=== PATIENT | female | born 1985 | race African-American/Black ===

== ENCOUNTER 2025-09-04 18:29 | Emergency (ER) | payer MEDICAID, SELFPAY ==
[2025-09-04 18:27] VITALS: BP 148/103; PULSE 106; RESP 16; TEMP 36.6; O2SAT 99
--- NOTE | 2025-09-04 19:04 | PC.NURSE ---
Pt refusing to let RN obtain blood work, pt educated still refusing to let RN obtain blood work. EDP aware
[2025-09-04 19:24] LABS: BEDSIDEPREGUCG Negative (Negative)
[2025-09-04 19:26] LABS: Hematocrit 37.7 % (37.0-47.0); Hemoglobin 12.2 g/dL (12.0-15.0); Immature Granulocyte Percent A 0.2 % (0-0.5); Lymphocytes Absolute Auto 2.49 K/mm3 (0.9-3.2); Mean Corpuscular HGB Conc 32.4 g/dl (32-36); Mean Corpuscular Hemoglobin 30.0 pg (26-34); Mean Corpuscular Volume 92.9 fl (80-100); Nucleated Red Blood Cells Absolute Auto 0.000 K/mm3 (0.0-0.012); Nucleated Red Blood Cells Perc 0.0 % (0.0-0.2); Platelet Count Result 302 k/mm3 (150-375); Red Blood Count 4.06 M/mm3 (4.2-5.4); White Blood Count 5.5 K/mm3 (4.5-10.0)
--- OUTSIDE RECORDS SUMMARY | 2025-09-04 19:28 | XMS_ITS | Patient Health Record ---
Author Organization [facility] Address [address] [place] [address] Care Team Providers Care Winery Worker Name Role Phone LookerEvelyn Primary Care Provider [phone] Allergies Allergen (clinical drug ingredient) Drug/Non Drug Allergy documented on EMR Reaction Allergy Type Onset Date Status Soap Soap (uncoded) rash Allergy Activ e clindamycin Clindamycin rash Drug Allergy Act laurie Povidone-iodine rash Drug Allergy A ctive Reason For Referral No Information Medications Medication SIG (Take, Route, Frequency, Duration) Notes Start Date End Date Status Citalopram Hydrobromide 20 MG Tablet take 1 tablet by oral route every day Oral ([facility]) 05/14/2014 Active RisperDAL 2 MG Tablet take 1 tablet by o ral route 2 times every day Oral ([facility]) 05/14/2014 Active metFORMIN HCl 500 MG Tablet take 2 tablet by oral route 2 times every day with morning and evening meals Oral ([facility]) 05/14/2014 Active RisperDAL 2 MG Tablet take 1 tablet by o ral route 2 times every day Oral ([facility]) 05/14/2014 Active metFORMIN HCl 500 MG Tablet take 2 tablet by oral route 2 times every day with morning and evening meals Oral ([facility]) 05/14/2014 Active Symbicort Active Glimepiride Active Citalopram Hydrobromide 20 MG Tablet take 1 tablet by oral route every day Oral ([facility]) 05/14/2014 Active Problems Problem Type SNOMED Code ICD Code Onset Dates Problem Status W/U Status Risk Notes Problem Type II diabetes mellitus without complication (467685844) Diabetes mellitus without mention of complication, type II or unspecified type, not stated as uncontrolled (250.00) 014 Active confirmed ([facility] ) Added By: Ella Collins Problem Schizoaffective disorder (22005243) Schizoaffective disorder, unspecified (295.70) 014 Active confirmed ([facility] ) Added By: Ella Collins Problem Dental caries (14594219) Dental caries (K02.9) Active confirmed Plan Of Treatment No Information Insurance Providers Payer Name Payer Address Payer Phone Subscriber Number Group Number Insured Name Patient Relationship to Insured Coverage Start Date Coverage End Date Medicare NGS [address] [place], [place] [id number] [phone] [id number] JamesAnnaShakira Self - patient is the insured Medicaid [facility] Secondary To Medicare [address] [place] [address] [id number] Shakira Ramirez Self - patient is the insured [employer] [address] [place] [address] [id number] Shakira Ramirez Self - patient is the insured [employer] [address] [place] [address] [id number] James Shakira Self - patient is the insured Medical (General) History Medical History History ICD Code diabetes anemia bleeding problems bruise easily sinus problems psychiatric problems asthma shingles
[2025-09-04 19:32] LABS: Add Urine Microscopic? YES; Appearance Urine Clear (Clear); Glucose Urine UA 3+ mg/dL (Negative); Leukocyte Esterase Ur Negative LEU/UL (Negative); Nitrate Urine Negative (Negative); Non Pathogenic Casts 0-2; Specific Grav Ur 1.037 (1.001-1.035)
[2025-09-04 19:37] LABS: Acetaminophen < 10 ug/mL (10-30); Salicylate < 1.0 mg/dL (2-20)
[2025-09-04 19:40] LABS: Alanine Aminotransferase 30 U/L (6-35); Albumin Level 3.6 g/dL (3.5-5.1); Alkaline Phosphatase 116 U/L (38-126); Anion Gap 7 mmol/L (4-12); Aspartate Amino Transferase 27 U/L (14-36); Bilirubin,Total 0.3 mg/dL (0.2-1.3); Blood Urea Nitrogen 14 mg/dL (7-17); Calcium 8.8 mg/dL (8.4-10.2); Carbon Dioxide 26 mmol/L (22-30); Chloride 97 mmol/L (98-107); Estimated CRCL calculation 119 ml/min; Estimated Glomerular Filt Rate > 60; Glucose 542 mg/dL (65-110); Potassium 4.1 mmol/L (3.4-5.0); Sodium 130 mmol/L (137-145); Total Protein 7.4 g/dL (6.3-8.2)
--- NOTE | 2025-09-04 19:40 | ED.PSYCH ---
HPI - Psych General Chief Complaint: Psychiatric Symptoms <FIDELINA Anthony Last Filed: 09/05/25 02:57> Stated Complaint: SI, HIGH BG <FIDELINA Anthony Last Filed: 09/05/25 02:57> Time Seen by Provider: 09/05/25 04:29 <FIDELINA Anthony Last Filed: 09/05/25 02:57> Source: patient <FIDELINA Anthony Last Filed: 09/05/25 02:57> Mode of arrival: EMS <FIDELINA Anthony Last Filed: 09/05/25 02:57> Limitations: no limitations <FIDELINA Anthony Last Filed: 09/05/25 02:57> History of Present Illness HPI Narrative: Patient is a 39 y/o female, with PMH of DM, schizophrenia, who presents to the ED via EMS with report SI/HI. Patient was recently discharged from [facility] after undergoing drug rehab, sent to [facility] today. Reports she got into an altercation with staff there are and was kicked out.She reportedly refused to leave the facility at which point PD became involved. Patient expressed homicidal ideation towards the female [employer] police and stated that she wanted to shoot her in the head. Also reported no desire to continue living. Expressed numerous plans of suicidal ideation. EMS was called to bring patient here. <FIDELINA Anthony Last Filed: 09/05/25 02:57> Related Data Allergies/Adverse Reactions: Allergies Allergy/AdvReac Type Severity Reaction Status Date / Time clindamycin Allergy Hives Verified 09/04/25 18:40 povidone-iodine (From Allergy Hives Verified 09/04/25 18:40 Betadine) <FIDELINA Anthony Last Filed: 09/05/25 02:57> Review of Systems Review of Systems: All systems reviewed & are unremarkable except as noted in HPI. <FIDELINA Anthony Last Filed: 09/05/25 02:57> All systems reviewed & are unremarkable except as noted in HPI and below <Nilda Stephen PA-C - Last Filed: 09/05/25 02:57> [facility] Social History Social History: Social History Substance use type: unknown <Nilda Stephen PA-C - Last Filed: 09/05/25 02:57> Exam Narrative: GENERAL: Tearful, obese with BMI of 32.5, non-toxic, in no acute distress. HEAD: Normocephalic, atraumatic. RESPIRATORY: Airway patent, respirations nonlabored. Clear to auscultation bilaterally, no rales, rhonchi, wheezing. CARDIOVASCULAR: Regular rate and rhythm MUSCULOSKELETAL: Moves all extremities. No gross deformities. SKIN: Warm, dry, normal color. NEURO: A&O X3. Speech clear. Cranial nerves II-XII grossly intact. Steady gait. No ataxic movements. PSYCHIATRIC: Depressed mood, tearful. Normal interaction. <Nilda Stephen PA-C - Last Filed: 09/05/25 02:57> Course Course Emergency Course: Patient signed out to me pending placement. Patient agreeable to involuntary. Facilities being contacted. No acceptance as of 07:30; will be signed out to oncoming ED attending. Diabetic / safety tray ordered and patient already has metformin ordered/scheduled. Rx has been printed for use. <Henna Grant MD - Last Filed: 09/05/25 07:29> Vital Signs Vital signs: Vital Signs Temperature 97.9 F 09/04/25 18:27 Pulse Rate 106 H 09/04/25 18:27 Respiratory Rate 16 09/04/25 18:27 Blood Pressure 148/103 H 09/04/25 18:27 Pulse Oximetry 99 09/04/25 18:27 Oxygen Delivery Room Air 09/04/25 18:27 Temperature 98.5 F 09/05/25 15:54 Pulse Rate 91 09/05/25 15:54 Respiratory Rate 14 09/05/25 15:54 Blood Pressure 139/97 H 09/05/25 15:54 Pulse Oximetry 99 09/05/25 15:54 Oxygen Delivery Room Air 09/04/25 18:27 <Nilda Stephen PA-C - Last Filed: 09/05/25 02:57> Vital Signs Temperature 97.9 F 09/04/25 18:27 Pulse Rate 106 H 09/04/25 18:27 Respiratory Rate 16 09/04/25 18:27 Blood Pressure 148/103 H 09/04/25 18:27 Pulse Oximetry 99 09/04/25 18:27 Oxygen Delivery Room Air 09/04/25 18:27 Temperature 98.5 F 09/05/25 15:54 Pulse Rate 91 09/05/25 15:54 Respiratory Rate 14 09/05/25 15:54 Blood Pressure 139/97 H 09/05/25 15:54 Pulse Oximetry 99 09/05/25 15:54 Oxygen Delivery Room Air 09/04/25 18:27 <Henna Grant MD - Last Filed: 09/05/25 07:29> Vital Signs Temperature 97.9 F 09/04/25 18:27 Pulse Rate 106 H 09/04/25 18:27 Respiratory Rate 16 09/04/25 18:27 Blood Pressure 148/103 H 09/04/25 18:27 Pulse Oximetry 99 09/04/25 18:27 Oxygen Delivery Room Air 09/04/25 18:27 Temperature 98.5 F 09/05/25 15:54 Pulse Rate 91 09/05/25 15:54 Respiratory Rate 14 09/05/25 15:54 Blood Pressure 139/97 H 09/05/25 15:54 Pulse Oximetry 99 09/05/25 15:54 Oxygen Delivery Room Air 09/04/25 18:27 <Eriberto Doty III, DO - Last Filed: 09/05/25 18:28> MDM - Psych MDM Narrative Medical decision making narrative: ED pysch w/u was initiated. Patient's BG elevated to 542 on CMP. Hx of DM. Is not currently on any diabetic regimen. Reports she has previously been on metformin, but has not been on this for about 2 months. Was on glimepiride about 2 years ago. Had been on insulin at one point but unsure when. There is no evidence of DKA on labs today. Bicarb 26. Anion gap of 7. No ketones in urine. Discussed giving patient fluids to help lower blood sugar. Patient adamantly refusing IV. She was given dose of subQ Lantus (0.2U/kg - 18U) and water to drink. A1c is elevated to 12.6%. Patient will be restarted on metformin regimen and will need to have close follow-up with primary care doctor as an outpatient to monitor response to metformin and/or need for additional diabetic medication. Given 1st dose of 1000 mg metformin in the ED. Patient is otherwise medically cleared to undergo psychiatric evaluation by crisis team. Crisis here to evaluate patient. Determined her to meet criteria for inpatient psychiatric hospitalization. Patient voluntary at this time. Care signed out to Dr. Grant at shift change pending inpatient psychiatric bed placement. <Nilda Stephen PA-C - Last Filed: 09/05/25 02:57> ED pysch w/u was initiated. Patient's BG elevated to 542 on CMP. Hx of DM. Is not currently on any diabetic regimen. Reports she has previously been on metformin, but has not been on this for about 2 months. Was on glimepiride about 2 years ago. Had been on insulin at one point but unsure when. There is no evidence of DKA on labs today. Bicarb 26. Anion gap of 7. No ketones in urine. Discussed giving patient fluids to help lower blood sugar. Patient adamantly refusing IV. She was given dose of subQ Lantus (0.2U/kg - 18U) and water to drink. A1c is elevated to 12.6%. Patient will be restarted on metformin regimen and will need to have close follow-up with primary care doctor as an outpatient to monitor response to metformin and/or need for additional diabetic medication. Given 1st dose of 1000 mg metformin in the ED. Patient is otherwise medically cleared to undergo psychiatric evaluation by crisis team. Crisis here to evaluate patient. Determined her to meet criteria for inpatient psychiatric hospitalization. Patient voluntary at this time. Care signed out to Dr. Grant at shift change pending inpatient psychiatric bed placement. Pt calm for most of shift. Pt did have one outburst of yelling when trying to get accucheck but calmed down. Pt has been accepted reportedly at [facility] but no beds. [facility] has bed. Pt to be transferred. <Eriberto Doty III, DO - Last Filed: 09/05/25 18:28> Medical Records Attestation: I reviewed the patient's medical records. <Nilda Stephen PA-C - Last Filed: 09/05/25 02:57> Lab Data Attestation: I reviewed the patient's lab results. <Nilda Stephen PA-C - Last Filed: 09/05/25 02:57> Result diagrams: 09/04/25 19:18 09/04/25 19:18 <Nilda Stephen PA-C - Last Filed: 09/05/25 02:57> Labs: Lab Results 09/04/25 09/04/25 09/04/25 Range/Units 18:45 19:18 19:22 WBC 5.5 (4.5-10.0) K/mm3 RBC 4.06 L (4.2-5.4) M/mm3 Hgb 12.2 (12.0-15.0) g/dL Hct 37.7 (37.0-47.0) % MCV 92.9 (80-100) fl MCH 30.0 (26-34) pg MCHC 32.4 (32-36) g/dl RDW 13.7 (11.5-14.5) % Plt Count 302 (150-375) k/mm3 MPV 11.2 H (7.4-10.4) fl Immature Gran % (Auto) 0.2 (0-0.5) % Neut % (Auto) 46.2 (45.5-73.1) % Lymph % (Auto) 45.3 H (18.3-44.2) % Schuyler % (Auto) 6.2 (2.6-8.5) % Eos % (Auto) 1.6 (0-4.4) % Baso % (Auto) 0.5 (0.2-1.2) % Lymph # (Auto) 2.49 (0.9-3.2) K/mm3 Schuyler # (Auto) 0.3 (0.1-0.6) K/mm3 Eos # (Auto) 0.1 (0-0.3) K/mm3 Baso # (Auto) 0.0 (0.0-0.1) K/mm3 Abs Immat Gran (auto) 0.01 (0.00-0.031) K/mm3 Absolute Neuts (auto) 2.5 (1.3-6.7) K/mm3 Absolute Nucleated RBC 0.000 (0.0-0.012) K/mm3 Nucleated RBC % 0.0 (0.0-0.2) % Sodium 130 L (137-145) mmol/L Potassium 4.1 (3.4-5.0) mmol/L Chloride 97 L (98-107) mmol/L Carbon Dioxide 26 (22-30) mmol/L Anion Gap 7 (4-12) mmol/L BUN 14 (7-17) mg/dL Creatinine 0.63 L (0.7-1.0) mg/dL Estim Creat Clear Calc 119 ml/min Estimated GFR > 60 (59 - ) Glucose 542 H* (65-110) mg/dL POC Capillary Glucose > 500 H* (65-105) mg/dl Hemoglobin A1c 12.6 H (<5.7) % Calcium 8.8 (8.4-10.2) mg/dL Total Bilirubin 0.3 (0.2-1.3) mg/dL AST 27 (14-36) U/L ALT 30 (6-35) U/L Alkaline Phosphatase 116 (38-126) U/L Total Protein 7.4 (6.3-8.2) g/dL Albumin 3.6 (3.5-5.1) g/dL TSH 2.920 (0.465-4.680) uIU/mL Urine Color Yellow (Yellow) Urine Appearance Clear (Clear) Urine pH 6.0 (5.0-9.0) Ur Specific [place] 1.037 H (1.001-1.035) Urine Protein Trace (Negative) mg/dL Urine Glucose (UA) 3+ H (Negative) mg/dL Urine Ketones Negative (Negative) mg/dL Ur Blood (Man) Negative (Negative) Urine Nitrate Negative (Negative) Urine Bilirubin Negative (Negative) Urine Urobilinogen 0.2 (<2.0) mg/dL Leukocyte Esterase Rfl Negative (Negative) SIVA/UL Urine RBC 0-2 (0-2) /hpf Urine WBC 0-5 (0-3) /hpf Ur Squamous Epith Cells None seen (Few) /hpf Urine Bacteria None seen /hpf Urine Casts 0-2 POC Urine HCG, Qual Negative (Negative) Salicylates < 1.0 L (2-20) mg/dL Urine Opiates Screen Negative (Negative) Urine Methadone Screen Negative (Negative) Acetaminophen < 10 L (10-30) ug/mL Ur Barbiturates Screen Negative (Negative) Ur Phencyclidine Scrn Negative (Negative) Ur Amphetamine Screen Negative (Negative) U Benzodiazepines Scrn Negative (Negative) Urine Cocaine Screen Negative (Negative) U Cannabinoids Screen Negative (Negative) Ethyl Alcohol < 10 (<10) mg/dL Influenza A (RT-PCR) Negative (Negative) Influenza B (RT-PCR) Negative (Negative) RSV (RT-PCR) Negative (Negative) SARS-CoV-2 RNA (RT-PCR) Negative (Negative) 09/04/25 09/04/25 09/05/25 Range/Units 20:40 21:27 06:22 WBC (4.5-10.0) K/mm3 RBC (4.2-5.4) M/mm3 Hgb (12.0-15.0) g/dL Hct (37.0-47.0) % MCV (80-100) fl MCH (26-34) pg MCHC (32-36) g/dl RDW (11.5-14.5) % Plt Count (150-375) k/mm3 MPV (7.4-10.4) fl Immature Gran % (Auto) (0-0.5) % Neut % (Auto) (45.5-73.1) % Lymph % (Auto) (18.3-44.2) % Schuyler % (Auto) (2.6-8.5) % Eos % (Auto) (0-4.4) % Baso % (Auto) (0.2-1.2) % Lymph # (Auto) (0.9-3.2) K/mm3 Schuyler # (Auto) (0.1-0.6) K/mm3 Eos # (Auto) (0-0.3) K/mm3 Baso # (Auto) (0.0-0.1) K/mm3 Abs Immat Gran (auto) (0.00-0.031) K/mm3 Absolute Neuts (auto) (1.3-6.7) K/mm3 Absolute Nucleated RBC (0.0-0.012) K/mm3 Nucleated RBC % (0.0-0.2) % Sodium (137-145) mmol/L Potassium (3.4-5.0) mmol/L Chloride (98-107) mmol/L Carbon Dioxide (22-30) mmol/L Anion Gap (4-12) mmol/L BUN (7-17) mg/dL Creatinine (0.7-1.0) mg/dL Estim Creat Clear Calc ml/min Estimated GFR (59 - ) Glucose (65-110) mg/dL POC Capillary Glucose 490 H 489 H 320 H (65-105) mg/dl Hemoglobin A1c (<5.7) % Calcium (8.4-10.2) mg/dL Total Bilirubin (0.2-1.3) mg/dL AST (14-36) U/L ALT (6-35) U/L Alkaline Phosphatase (38-126) U/L Total Protein (6.3-8.2) g/dL Albumin (3.5-5.1) g/dL TSH (0.465-4.680) uIU/mL Urine Color (Yellow) Urine Appearance (Clear) Urine pH (5.0-9.0) Ur Specific [place] (1.001-1.035) Urine Protein (Negative) mg/dL Urine Glucose (UA) (Negative) mg/dL Urine Ketones (Negative) mg/dL Ur Blood (Man) (Negative) Urine Nitrate (Negative) Urine Bilirubin (Negative) Urine Urobilinogen (<2.0) mg/dL Leukocyte Esterase Rfl (Negative) SIVA/UL Urine RBC (0-2) /hpf Urine WBC (0-3) /hpf Ur Squamous Epith Cells (Few) /hpf Urine Bacteria /hpf Urine Casts POC Urine HCG, Qual (Negative) Salicylates (2-20) mg/dL Urine Opiates Screen (Negative) Urine Methadone Screen (Negative) Acetaminophen (10-30) ug/mL Ur Barbiturates Screen (Negative) Ur Phencyclidine Scrn (Negative) Ur Amphetamine Screen (Negative) U Benzodiazepines Scrn (Negative) Urine Cocaine Screen (Negative) U Cannabinoids Screen (Negative) Ethyl Alcohol (<10) mg/dL Influenza A (RT-PCR) (Negative) Influenza B (RT-PCR) (Negative) RSV (RT-PCR) (Negative) SARS-CoV-2 RNA (RT-PCR) (Negative) 09/05/25 Range/Units 15:52 WBC (4.5-10.0) K/mm3 RBC (4.2-5.4) M/mm3 Hgb (12.0-15.0) g/dL Hct (37.0-47.0) % MCV (80-100) fl MCH (26-34) pg MCHC (32-36) g/dl RDW (11.5-14.5) % Plt Count (150-375) k/mm3 MPV (7.4-10.4) fl Immature Gran % (Auto) (0-0.5) % Neut % (Auto) (45.5-73.1) % Lymph % (Auto) (18.3-44.2) % Schuyler % (Auto) (2.6-8.5) % Eos % (Auto) (0-4.4) % Baso % (Auto) (0.2-1.2) % Lymph # (Auto) (0.9-3.2) K/mm3 Schuyler # (Auto) (0.1-0.6) K/mm3 Eos # (Auto) (0-0.3) K/mm3 Baso # (Auto) (0.0-0.1) K/mm3 Abs Immat Gran (auto) (0.00-0.031) K/mm3 Absolute Neuts (auto) (1.3-6.7) K/mm3 Absolute Nucleated RBC (0.0-0.012) K/mm3 Nucleated RBC % (0.0-0.2) % Sodium (137-145) mmol/L Potassium (3.4-5.0) mmol/L Chloride (98-107) mmol/L Carbon Dioxide (22-30) mmol/L Anion Gap (4-12) mmol/L BUN (7-17) mg/dL Creatinine (0.7-1.0) mg/dL Estim Creat Clear Calc ml/min Estimated GFR (59 - ) Glucose (65-110) mg/dL POC Capillary Glucose 313 H (65-105) mg/dl Hemoglobin A1c (<5.7) % Calcium (8.4-10.2) mg/dL Total Bilirubin (0.2-1.3) mg/dL AST (14-36) U/L ALT (6-35) U/L Alkaline Phosphatase (38-126) U/L Total Protein (6.3-8.2) g/dL Albumin (3.5-5.1) g/dL TSH (0.465-4.680) uIU/mL Urine Color (Yellow) Urine Appearance (Clear) Urine pH (5.0-9.0) Ur Specific [place] (1.001-1.035) Urine Protein (Negative) mg/dL Urine Glucose (UA) (Negative) mg/dL Urine Ketones (Negative) mg/dL Ur Blood (Man) (Negative) Urine Nitrate (Negative) Urine Bilirubin (Negative) Urine Urobilinogen (<2.0) mg/dL Leukocyte Esterase Rfl (Negative) SIVA/UL Urine RBC (0-2) /hpf Urine WBC (0-3) /hpf Ur Squamous Epith Cells (Few) /hpf Urine Bacteria /hpf Urine Casts POC Urine HCG, Qual (Negative) Salicylates (2-20) mg/dL Urine Opiates Screen (Negative) Urine Methadone Screen (Negative) Acetaminophen (10-30) ug/mL Ur Barbiturates Screen (Negative) Ur Phencyclidine Scrn (Negative) Ur Amphetamine Screen (Negative) U Benzodiazepines Scrn (Negative) Urine Cocaine Screen (Negative) U Cannabinoids Screen (Negative) Ethyl Alcohol (<10) mg/dL Influenza A (RT-PCR) (Negative) Influenza B (RT-PCR) (Negative) RSV (RT-PCR) (Negative) SARS-CoV-2 RNA (RT-PCR) (Negative) <Nilda Stephen PA-C - Last Filed: 09/05/25 02:57> Lab Results 09/04/25 09/04/25 09/04/25 Range/Units 18:45 19:18 19:22 WBC 5.5 (4.5-10.0) K/mm3 RBC 4.06 L (4.2-5.4) M/mm3 Hgb 12.2 (12.0-15.0) g/dL Hct 37.7 (37.0-47.0) % MCV 92.9 (80-100) fl MCH 30.0 (26-34) pg MCHC 32.4 (32-36) g/dl RDW 13.7 (11.5-14.5) % Plt Count 302 (150-375) k/mm3 MPV 11.2 H (7.4-10.4) fl Immature Gran % (Auto) 0.2 (0-0.5) % Neut % (Auto) 46.2 (45.5-73.1) % Lymph % (Auto) 45.3 H (18.3-44.2) % Schuyler % (Auto) 6.2 (2.6-8.5) % Eos % (Auto) 1.6 (0-4.4) % Baso % (Auto) 0.5 (0.2-1.2) % Lymph # (Auto) 2.49 (0.9-3.2) K/mm3 Schuyler # (Auto) 0.3 (0.1-0.6) K/mm3 Eos # (Auto) 0.1 (0-0.3) K/mm3 Baso # (Auto) 0.0 (0.0-0.1) K/mm3 Abs Immat Gran (auto) 0.01 (0.00-0.031) K/mm3 Absolute Neuts (auto) 2.5 (1.3-6.7) K/mm3 Absolute Nucleated RBC 0.000 (0.0-0.012) K/mm3 Nucleated RBC % 0.0 (0.0-0.2) % Sodium 130 L (137-145) mmol/L Potassium 4.1 (3.4-5.0) mmol/L Chloride 97 L (98-107) mmol/L Carbon Dioxide 26 (22-30) mmol/L Anion Gap 7 (4-12) mmol/L BUN 14 (7-17) mg/dL Creatinine 0.63 L (0.7-1.0) mg/dL Estim Creat Clear Calc 119 ml/min Estimated GFR > 60 (59 - ) Glucose 542 H* (65-110) mg/dL POC Capillary Glucose > 500 H* (65-105) mg/dl Hemoglobin A1c 12.6 H (<5.7) % Calcium 8.8 (8.4-10.2) mg/dL Total Bilirubin 0.3 (0.2-1.3) mg/dL AST 27 (14-36) U/L ALT 30 (6-35) U/L Alkaline Phosphatase 116 (38-126) U/L Total Protein 7.4 (6.3-8.2) g/dL Albumin 3.6 (3.5-5.1) g/dL TSH 2.920 (0.465-4.680) uIU/mL Urine Color Yellow (Yellow) Urine Appearance Clear (Clear) Urine pH 6.0 (5.0-9.0) Ur Specific [place] 1.037 H (1.001-1.035) Urine Protein Trace (Negative) mg/dL Urine Glucose (UA) 3+ H (Negative) mg/dL Urine Ketones Negative (Negative) mg/dL Ur Blood (Man) Negative (Negative) Urine Nitrate Negative (Negative) Urine Bilirubin Negative (Negative) Urine Urobilinogen 0.2 (<2.0) mg/dL Leukocyte Esterase Rfl Negative (Negative) SIVA/UL Urine RBC 0-2 (0-2) /hpf Urine WBC 0-5 (0-3) /hpf Ur Squamous Epith Cells None seen (Few) /hpf Urine Bacteria None seen /hpf Urine Casts 0-2 POC Urine HCG, Qual Negative (Negative) Salicylates < 1.0 L (2-20) mg/dL Urine Opiates Screen Negative (Negative) Urine Methadone Screen Negative (Negative) Acetaminophen < 10 L (10-30) ug/mL Ur Barbiturates Screen Negative (Negative) Ur Phencyclidine Scrn Negative (Negative) Ur Amphetamine Screen Negative (Negative) U Benzodiazepines Scrn Negative (Negative) Urine Cocaine Screen Negative (Negative) U Cannabinoids Screen Negative (Negative) Ethyl Alcohol < 10 (<10) mg/dL Influenza A (RT-PCR) Negative (Negative) Influenza B (RT-PCR) Negative (Negative) RSV (RT-PCR) Negative (Negative) SARS-CoV-2 RNA (RT-PCR) Negative (Negative) 09/04/25 09/04/25 09/05/25 Range/Units 20:40 21:27 06:22 WBC (4.5-10.0) K/mm3 RBC (4.2-5.4) M/mm3 Hgb (12.0-15.0) g/dL Hct (37.0-47.0) % MCV (80-100) fl MCH (26-34) pg MCHC (32-36) g/dl RDW (11.5-14.5) % Plt Count (150-375) k/mm3 MPV (7.4-10.4) fl Immature Gran % (Auto) (0-0.5) % Neut % (Auto) (45.5-73.1) % Lymph % (Auto) (18.3-44.2) % Schuyler % (Auto) (2.6-8.5) % Eos % (Auto) (0-4.4) % Baso % (Auto) (0.2-1.2) % Lymph # (Auto) (0.9-3.2) K/mm3 Schuyler # (Auto) (0.1-0.6) K/mm3 Eos # (Auto) (0-0.3) K/mm3 Baso # (Auto) (0.0-0.1) K/mm3 Abs Immat Gran (auto) (0.00-0.031) K/mm3 Absolute Neuts (auto) (1.3-6.7) K/mm3 Absolute Nucleated RBC (0.0-0.012) K/mm3 Nucleated RBC % (0.0-0.2) % Sodium (137-145) mmol/L Potassium (3.4-5.0) mmol/L Chloride (98-107) mmol/L Carbon Dioxide (22-30) mmol/L Anion Gap (4-12) mmol/L BUN (7-17) mg/dL Creatinine (0.7-1.0) mg/dL Estim Creat Clear Calc ml/min Estimated GFR (59 - ) Glucose (65-110) mg/dL POC Capillary Glucose 490 H 489 H 320 H (65-105) mg/dl Hemoglobin A1c (<5.7) % Calcium (8.4-10.2) mg/dL Total Bilirubin (0.2-1.3) mg/dL AST (14-36) U/L ALT (6-35) U/L Alkaline Phosphatase (38-126) U/L Total Protein (6.3-8.2) g/dL Albumin (3.5-5.1) g/dL TSH (0.465-4.680) uIU/mL Urine Color (Yellow) Urine Appearance (Clear) Urine pH (5.0-9.0) Ur Specific [place] (1.001-1.035) Urine Protein (Negative) mg/dL Urine Glucose (UA) (Negative) mg/dL Urine Ketones (Negative) mg/dL Ur Blood (Man) (Negative) Urine Nitrate (Negative) Urine Bilirubin (Negative) Urine Urobilinogen (<2.0) mg/dL Leukocyte Esterase Rfl (Negative) SIVA/UL Urine RBC (0-2) /hpf Urine WBC (0-3) /hpf Ur Squamous Epith Cells (Few) /hpf Urine Bacteria /hpf Urine Casts POC Urine HCG, Qual (Negative) Salicylates (2-20) mg/dL Urine Opiates Screen (Negative) Urine Methadone Screen (Negative) Acetaminophen (10-30) ug/mL Ur Barbiturates Screen (Negative) Ur Phencyclidine Scrn (Negative) Ur Amphetamine Screen (Negative) U Benzodiazepines Scrn (Negative) Urine Cocaine Screen (Negative) U Cannabinoids Screen (Negative) Ethyl Alcohol (<10) mg/dL Influenza A (RT-PCR) (Negative) Influenza B (RT-PCR) (Negative) RSV (RT-PCR) (Negative) SARS-CoV-2 RNA (RT-PCR) (Negative) 09/05/25 Range/Units 15:52 WBC (4.5-10.0) K/mm3 RBC (4.2-5.4) M/mm3 Hgb (12.0-15.0) g/dL Hct (37.0-47.0) % MCV (80-100) fl MCH (26-34) pg MCHC (32-36) g/dl RDW (11.5-14.5) % Plt Count (150-375) k/mm3 MPV (7.4-10.4) fl Immature Gran % (Auto) (0-0.5) % Neut % (Auto) (45.5-73.1) % Lymph % (Auto) (18.3-44.2) % Schuyler % (Auto) (2.6-8.5) % Eos % (Auto) (0-4.4) % Baso % (Auto) (0.2-1.2) % Lymph # (Auto) (0.9-3.2) K/mm3 [place] # (Auto) (0.1-0.6) K/mm3 Eos # (Auto) (0-0.3) K/mm3 Baso # (Auto) (0.0-0.1) K/mm3 Abs Immat Gran (auto) (0.00-0.031) K/mm3 Absolute Neuts (auto) (1.3-6.7) K/mm3 Absolute Nucleated RBC (0.0-0.012) K/mm3 Nucleated RBC % (0.0-0.2) % Sodium (137-145) mmol/L Potassium (3.4-5.0) mmol/L Chloride (98-107) mmol/L Carbon Dioxide (22-30) mmol/L Anion Gap (4-12) mmol/L BUN (7-17) mg/dL Creatinine (0.7-1.0) mg/dL Estim Creat Clear Calc ml/min Estimated GFR (59 - ) Glucose (65-110) mg/dL POC Capillary Glucose 313 H (65-105) mg/dl Hemoglobin A1c (<5.7) % Calcium (8.4-10.2) mg/dL Total Bilirubin (0.2-1.3) mg/dL AST (14-36) U/L ALT (6-35) U/L Alkaline Phosphatase (38-126) U/L Total Protein (6.3-8.2) g/dL Albumin (3.5-5.1) g/dL TSH (0.465-4.680) uIU/mL Urine Color (Yellow) Urine Appearance (Clear) Urine pH (5.0-9.0) Ur Specific [place] (1.001-1.035) Urine Protein (Negative) mg/dL Urine Glucose (UA) (Negative) mg/dL Urine Ketones (Negative) mg/dL Ur Blood (Man) (Negative) Urine Nitrate (Negative) Urine Bilirubin (Negative) Urine Urobilinogen (<2.0) mg/dL Leukocyte Esterase Rfl (Negative) SIVA/UL Urine RBC (0-2) /hpf Urine WBC (0-3) /hpf Ur Squamous Epith Cells (Few) /hpf Urine Bacteria /hpf Urine Casts POC Urine HCG, Qual (Negative) Salicylates (2-20) mg/dL Urine Opiates Screen (Negative) Urine Methadone Screen (Negative) Acetaminophen (10-30) ug/mL Ur Barbiturates Screen (Negative) Ur Phencyclidine Scrn (Negative) Ur Amphetamine Screen (Negative) U Benzodiazepines Scrn (Negative) Urine Cocaine Screen (Negative) U Cannabinoids Screen (Negative) Ethyl Alcohol (<10) mg/dL Influenza A (RT-PCR) (Negative) Influenza B (RT-PCR) (Negative) RSV (RT-PCR) (Negative) SARS-CoV-2 RNA (RT-PCR) (Negative) <Henna Grant MD - Last Filed: 09/05/25 07:29> Lab Results 09/04/25 09/04/25 09/04/25 Range/Units 18:45 19:18 19:22 WBC 5.5 (4.5-10.0) K/mm3 RBC 4.06 L (4.2-5.4) M/mm3 Hgb 12.2 (12.0-15.0) g/dL Hct 37.7 (37.0-47.0) % MCV 92.9 (80-100) fl MCH 30.0 (26-34) pg MCHC 32.4 (32-36) g/dl RDW 13.7 (11.5-14.5) % Plt Count 302 (150-375) k/mm3 MPV 11.2 H (7.4-10.4) fl Immature Gran % (Auto) 0.2 (0-0.5) % Neut % (Auto) 46.2 (45.5-73.1) % Lymph % (Auto) 45.3 H (18.3-44.2) % [place] % (Auto) 6.2 (2.6-8.5) % Eos % (Auto) 1.6 (0-4.4) % Baso % (Auto) 0.5 (0.2-1.2) % Lymph # (Auto) 2.49 (0.9-3.2) K/mm3 [place] # (Auto) 0.3 (0.1-0.6) K/mm3 Eos # (Auto) 0.1 (0-0.3) K/mm3 Baso # (Auto) 0.0 (0.0-0.1) K/mm3 Abs Immat Gran (auto) 0.01 (0.00-0.031) K/mm3 Absolute Neuts (auto) 2.5 (1.3-6.7) K/mm3 Absolute Nucleated RBC 0.000 (0.0-0.012) K/mm3 Nucleated RBC % 0.0 (0.0-0.2) % Sodium 130 L (137-145) mmol/L Potassium 4.1 (3.4-5.0) mmol/L Chloride 97 L (98-107) mmol/L Carbon Dioxide 26 (22-30) mmol/L Anion Gap 7 (4-12) mmol/L BUN 14 (7-17) mg/dL Creatinine 0.63 L (0.7-1.0) mg/dL Estim Creat Clear Calc 119 ml/min Estimated GFR > 60 (59 - ) Glucose 542 H* (65-110) mg/dL POC Capillary Glucose > 500 H* (65-105) mg/dl Hemoglobin A1c 12.6 H (<5.7) % Calcium 8.8 (8.4-10.2) mg/dL Total Bilirubin 0.3 (0.2-1.3) mg/dL AST 27 (14-36) U/L ALT 30 (6-35) U/L Alkaline Phosphatase 116 (38-126) U/L Total Protein 7.4 (6.3-8.2) g/dL Albumin 3.6 (3.5-5.1) g/dL TSH 2.920 (0.465-4.680) uIU/mL Urine Color Yellow (Yellow) Urine Appearance Clear (Clear) Urine pH 6.0 (5.0-9.0) Ur Specific [place] 1.037 H (1.001-1.035) Urine Protein Trace (Negative) mg/dL Urine Glucose (UA) 3+ H (Negative) mg/dL Urine Ketones Negative (Negative) mg/dL Ur Blood (Man) Negative (Negative) Urine Nitrate Negative (Negative) Urine Bilirubin Negative (Negative) Urine Urobilinogen 0.2 (<2.0) mg/dL Leukocyte Esterase Rfl Negative (Negative) SIVA/UL Urine RBC 0-2 (0-2) /hpf Urine WBC 0-5 (0-3) /hpf Ur Squamous Epith Cells None seen (Few) /hpf Urine Bacteria None seen /hpf Urine Casts 0-2 POC Urine HCG, Qual Negative (Negative) Salicylates < 1.0 L (2-20) mg/dL Urine Opiates Screen Negative (Negative) Urine Methadone Screen Negative (Negative) Acetaminophen < 10 L (10-30) ug/mL Ur Barbiturates Screen Negative (Negative) Ur Phencyclidine Scrn Negative (Negative) Ur Amphetamine Screen Negative (Negative) U Benzodiazepines Scrn Negative (Negative) Urine Cocaine Screen Negative (Negative) U Cannabinoids Screen Negative (Negative) Ethyl Alcohol < 10 (<10) mg/dL Influenza A (RT-PCR) Negative (Negative) Influenza B (RT-PCR) Negative (Negative) RSV (RT-PCR) Negative (Negative) SARS-CoV-2 RNA (RT-PCR) Negative (Negative) 09/04/25 09/04/25 09/05/25 Range/Units 20:40 21:27 06:22 WBC (4.5-10.0) K/mm3 RBC (4.2-5.4) M/mm3 Hgb (12.0-15.0) g/dL Hct (37.0-47.0) % MCV (80-100) fl MCH (26-34) pg MCHC (32-36) g/dl RDW (11.5-14.5) % Plt Count (150-375) k/mm3 MPV (7.4-10.4) fl Immature Gran % (Auto) (0-0.5) % Neut % (Auto) (45.5-73.1) % Lymph % (Auto) (18.3-44.2) % Schuyler % (Auto) (2.6-8.5) % Eos % (Auto) (0-4.4) % Baso % (Auto) (0.2-1.2) % Lymph # (Auto) (0.9-3.2) K/mm3 Schuyler # (Auto) (0.1-0.6) K/mm3 Eos # (Auto) (0-0.3) K/mm3 Baso # (Auto) (0.0-0.1) K/mm3 Abs Immat Gran (auto) (0.00-0.031) K/mm3 Absolute Neuts (auto) (1.3-6.7) K/mm3 Absolute Nucleated RBC (0.0-0.012) K/mm3 Nucleated RBC % (0.0-0.2) % Sodium (137-145) mmol/L Potassium (3.4-5.0) mmol/L Chloride (98-107) mmol/L Carbon Dioxide (22-30) mmol/L Anion Gap (4-12) mmol/L BUN (7-17) mg/dL Creatinine (0.7-1.0) mg/dL Estim Creat Clear Calc ml/min Estimated GFR (59 - ) Glucose (65-110) mg/dL POC Capillary Glucose 490 H 489 H 320 H (65-105) mg/dl Hemoglobin A1c (<5.7) % Calcium (8.4-10.2) mg/dL Total Bilirubin (0.2-1.3) mg/dL AST (14-36) U/L ALT (6-35) U/L Alkaline Phosphatase (38-126) U/L Total Protein (6.3-8.2) g/dL Albumin (3.5-5.1) g/dL TSH (0.465-4.680) uIU/mL Urine Color (Yellow) Urine Appearance (Clear) Urine pH (5.0-9.0) Ur Specific [place] (1.001-1.035) Urine Protein (Negative) mg/dL Urine Glucose (UA) (Negative) mg/dL Urine Ketones (Negative) mg/dL Ur Blood (Man) (Negative) Urine Nitrate (Negative) Urine Bilirubin (Negative) Urine Urobilinogen (<2.0) mg/dL Leukocyte Esterase Rfl (Negative) SIAV/UL Urine RBC (0-2) /hpf Urine WBC (0-3) /hpf Ur Squamous Epith Cells (Few) /hpf Urine Bacteria /hpf Urine Casts POC Urine HCG, Qual (Negative) Salicylates (2-20) mg/dL Urine Opiates Screen (Negative) Urine Methadone Screen (Negative) Acetaminophen (10-30) ug/mL Ur Barbiturates Screen (Negative) Ur Phencyclidine Scrn (Negative) Ur Amphetamine Screen (Negative) U Benzodiazepines Scrn (Negative) Urine Cocaine Screen (Negative) U Cannabinoids Screen (Negative) Ethyl Alcohol (<10) mg/dL Influenza A (RT-PCR) (Negative) Influenza B (RT-PCR) (Negative) RSV (RT-PCR) (Negative) SARS-CoV-2 RNA (RT-PCR) (Negative) 09/05/25 Range/Units 15:52 WBC (4.5-10.0) K/mm3 RBC (4.2-5.4) M/mm3 Hgb (12.0-15.0) g/dL Hct (37.0-47.0) % MCV (80-100) fl MCH (26-34) pg MCHC (32-36) g/dl RDW (11.5-14.5) % Plt Count (150-375) k/mm3 MPV (7.4-10.4) fl Immature Gran % (Auto) (0-0.5) % Neut % (Auto) (45.5-73.1) % Lymph % (Auto) (18.3-44.2) % Schuyler % (Auto) (2.6-8.5) % Eos % (Auto) (0-4.4) % Baso % (Auto) (0.2-1.2) % Lymph # (Auto) (0.9-3.2) K/mm3 [place]uyler # (Auto) (0.1-0.6) K/mm3 Eos # (Auto) (0-0.3) K/mm3 Baso # (Auto) (0.0-0.1) K/mm3 Abs Immat Gran (auto) (0.00-0.031) K/mm3 Absolute Neuts (auto) (1.3-6.7) K/mm3 Absolute Nucleated RBC (0.0-0.012) K/mm3 Nucleated RBC % (0.0-0.2) % Sodium (137-145) mmol/L Potassium (3.4-5.0) mmol/L Chloride (98-107) mmol/L Carbon Dioxide (22-30) mmol/L Anion Gap (4-12) mmol/L BUN (7-17) mg/dL Creatinine (0.7-1.0) mg/dL Estim Creat Clear Calc ml/min Estimated GFR (59 - ) Glucose (65-110) mg/dL POC Capillary Glucose 313 H (65-105) mg/dl Hemoglobin A1c (<5.7) % Calcium (8.4-10.2) mg/dL Total Bilirubin (0.2-1.3) mg/dL AST (14-36) U/L ALT (6-35) U/L Alkaline Phosphatase (38-126) U/L Total Protein (6.3-8.2) g/dL Albumin (3.5-5.1) g/dL TSH (0.465-4.680) uIU/mL Urine Color (Yellow) Urine Appearance (Clear) Urine pH (5.0-9.0) Ur Specific [place] (1.001-1.035) Urine Protein (Negative) mg/dL Urine Glucose (UA) (Negative) mg/dL Urine Ketones (Negative) mg/dL Ur Blood (Man) (Negative) Urine Nitrate (Negative) Urine Bilirubin (Negative) Urine Urobilinogen (<2.0) mg/dL Leukocyte Esterase Rfl (Negative) SIVA/UL Urine RBC (0-2) /hpf Urine WBC (0-3) /hpf Ur Squamous Epith Cells (Few) /hpf Urine Bacteria /hpf Urine Casts POC Urine HCG, Qual (Negative) Salicylates (2-20) mg/dL Urine Opiates Screen (Negative) Urine Methadone Screen (Negative) Acetaminophen (10-30) ug/mL Ur Barbiturates Screen (Negative) Ur Phencyclidine Scrn (Negative) Ur Amphetamine Screen (Negative) U Benzodiazepines Scrn (Negative) Urine Cocaine Screen (Negative) U Cannabinoids Screen (Negative) Ethyl Alcohol (<10) mg/dL Influenza A (RT-PCR) (Negative) Influenza B (RT-PCR) (Negative) RSV (RT-PCR) (Negative) SARS-CoV-2 RNA (RT-PCR) (Negative) <Eriberto Doty III, DO - Last Filed: 09/05/25 18:28> Discharge Plan Discharge Clinical Impression: Depression with suicidal ideation Hyperglycemia due to type 2 diabetes mellitus Qualifiers: Diabetes mellitus penitentiary insulin use: without penitentiary use Qualified Code(s): E11.65 - Type 2 diabetes mellitus with hyperglycemia <FIDELINA Anthony Last Filed: 09/05/25 02:57> Patient Disposition: Psychiatric Hosp <FIDELINA Anthony Last Filed: 09/05/25 02:57> Condition: Stable <FIDELINA Anthony Last Filed: 09/05/25 02:57> Patient Language: Palauan <FIDELINA Anthony Last Filed: 09/05/25 02:57> Prescriptions: New metformin 1,000 mg tablet 1,000 mg PO BID Qty: 60 0RF <FIDELINA Anthony Last Filed: 09/05/25 02:57> Follow-up/Referrals: Juanito Santana MD [Physician, Family Practice] Referral Note: PRIMARY CARE PHYSICIAN,[employer] [Primary Care Provider, Internal Medicine] <Nilda Stephen PA-C - Last Filed: 09/05/25 02:57>
[2025-09-04 19:44] LABS: Cannabinoid Screen Urine Negative (Negative)
[2025-09-04 20:01] LABS: Influenza A QL RT-PCR Negative (Negative); Influenza B QL RT-PCR Negative (Negative); RSV RNA, RT-PCR Negative (Negative); SARS-CoV-2 RNA PCR Negative (Negative)
[2025-09-04 20:11] LABS: Thyroid Stimulating Hormone 2.920 uIU/mL (0.465-4.680)
[2025-09-04 20:15] LABS: Hemoglobin A1C 12.6 % (<5.7)
[2025-09-04] MEDS: INSULIN GLARGINE (*BKC) 100 UNITS/ML 18 UNITS SUB-Q (20:42)
[2025-09-04 21:05] VITALS: BP 134/81; PULSE 92; RESP 18; O2SAT 99
--- NOTE | 2025-09-04 22:00 | PC.NURSE ---
This RN attempted to start an IV . Pt refused. This RN educated pt on importance of starting once to receive medication to lower blood sugar. pt refused stating what's the point anyway. EDP notified. RN discussed with pt POC.
--- NOTE | 2025-09-05 05:59 | PC.NURSE ---
Fanny from [facility] states that we are waiting to hear from [facility], [facility] ([facility]), [facility], and [facility]. Everything is faxed.
--- NOTE | 2025-09-05 06:25 | PC.NURSE ---
this RN spoke to Moon from [place] and gave update on pt. this RN was told they will call the doctor and give me a call back regarding placement.
--- NOTE | 2025-09-05 06:34 | PC.NURSE ---
Moon from [facility] called back and reports that due to being short staffed and unable to meet pt needs they will have to deny placement at this time.
[2025-09-05 06:36] VITALS: BP 156/92; PULSE 99; RESP 18; TEMP 36.5; O2SAT 98
--- NOTE | 2025-09-05 11:38 | PC.NURSE ---
crisis called and states to fax bruce to [facility] at [phone]
--- NOTE | 2025-09-05 13:03 | PC.NURSE ---
Pt refusing AccuCheck until after finished eating, pt is verbally aggressive.
--- NOTE | 2025-09-05 13:27 | PC.NURSE ---
Patient becoming verbally and physically aggressive with attempts to repeat her blood glucose and new set of vital signs. Dr Hinkle at bedside attempting to also talk with patient with the same results.
--- NOTE | 2025-09-05 14:06 | PC.NURSE ---
Per [facility], their provider would like the patient to have two consecutive FSBS <250.
[2025-09-05 15:54] VITALS: BP 139/97; PULSE 91; RESP 14; TEMP 36.9; O2SAT 99
--- NOTE | 2025-09-05 16:01 | PC.NURSE ---
Pt was agreeable and cooperative with getting vital signs and accucheck.
--- NOTE | 2025-09-05 17:06 | PC.NURSE ---
Spoke with Fanny [facility]-- updated on 1551 Accucheck of [id number] they stated that [facility] would not accept until she had 2 consecutive 250 or below accuchecks. She stated that they would check back later
--- NOTE | 2025-09-05 17:20 | PC.NURSE ---
Patient agreeable to talking with [facility], came out to hallway phone without issue
--- NOTE | 2025-09-05 17:34 | PC.NURSE ---
Patient refusing pre dinner AccuChbing, is willing to take her Metformin
--- NOTE | 2025-09-05 18:24 | PC.NURSE ---
1814--Spoke with Erin at [facility]-updated on acceptance of patient to [facility]
[2025-09-05 19:14] VITALS: BP 147/95; PULSE 88; RESP 18; TEMP 36.4; O2SAT 100
--- NOTE | 2025-09-05 19:15 | PC.NURSE ---
Report to transport team
== END 2025-09-05 19:22 ==
PROVIDERS: Physician Assistant; Student in an Organized Health Care Education/Training Program; Emergency Provider Emergency Medicine
DX: F32.A Depression, unspecified (principal); R45.851 Suicidal ideations; E11.65 Type 2 diabetes mellitus with hyperglycemia; Z11.52 Encounter for screening for COVID-19
CPT/HCPCS: 36415; 80053; 80143; 80179; 80307; 81001; 81025; 82077; 82948; 83036; 84443; 85025; 87637; 99285; A9270; J1815